=== PATIENT | male | born 1970 | race Caucasian/White ===

== ENCOUNTER 2025-07-06 11:34 | Emergency (ER) | payer OTHER ==
[~2025-07-06] VITALS: Ht 177.8 cm; Wt 83.9 kg
[2025-07-06 11:50] LABS: PLATELET COUNT (AUTO) 138 K/uL (152-348); RED BLOOD CELL COUNT(AUTO) 4.75 MIL/uL (4.06-5.63); RED CELL DISTRIBUTION WIDTH 13.4 % (12.1-16.2); WHITE BLOOD COUNT (AUTO) 6.4 K/uL (3.6-10.2)
[2025-07-06 12:14] LABS: CREATININE 0.8 mg/dL (0.6-1.3); SODIUM SERUM 141 mmol/L (136-145); UREA NITROGEN, BLOOD 12 mg/dL (7-18)
[2025-07-06] MEDS ORDERED: MECLIZINE HCL 25 MG TABLET ONE (12:21)
[2025-07-06] MEDS ORDERED: ONDANSETRON 4 MG/2 ML VIAL ONE (12:21)
[2025-07-06] MEDS: ONDANSETRON 4 MG/2 ML VIAL IV ONE (12:26)
[2025-07-06] MEDS: IV NORMAL SALINE 1000 ML BAG IV ONE (12:26)
[2025-07-06] MEDS: MECLIZINE HCL 25 MG TABLET PO ONE (12:27)
[2025-07-06] MEDS ORDERED: ONDA4TAB5 PO (13:17)
[2025-07-06] MEDS ORDERED: MECL-159 PO (13:17)
[2025-07-06 13:45] VITALS: BP 115/67
[2025-07-06 14:03] VITALS: BP 120/64; O2SAT 99
== END 2025-07-06 14:04 | disposition home or self-care (01) ==
LOC: ER 11:34
DX: R42 Dizziness and giddiness (principal); R11.0 Nausea; I11.9 Hypertensive heart disease without heart failure; Z79.899 Other long term (current) drug therapy
CPT/HCPCS: 36415; 71045; 84443; 84484; 85025; A4606; A4663; J2405; J7040; J8597